=== PATIENT | male | born 1990 | race Caucasian/White ===

== ENCOUNTER 2018-05-11 08:06 | Emergency (ER) | payer BC, MEDICAID ==
[~2018-05-11] VITALS: Ht 180.3 cm; Wt 100.0 kg
[2018-05-11 08:08] VITALS: Ht 180.3 cm; Wt 100.0 kg
[2018-05-11] MEDS ORDERED: ALBUTEROL 0.083% (NEB) 2.5 MG/3 ML AMP NEB STA (09:51)
[2018-05-11] MEDS ORDERED: IPRATROPIUM (NEB) 0.5 MG/2.5 ML AMP NEB STA (09:51)
[2018-05-11] MEDS ORDERED: DEXAMETHASONE 10 MG/ML 1 ML INJ IM STA (09:51)
[2018-05-11] MEDS: ACETAMINOPHEN 500 MG TAB PO STA ×2 (10:00→10:02)
[2018-05-11] MEDS ORDERED: IBUPROFEN 800 MG TAB PO ONE (10:30)
[2018-05-11] MEDS ORDERED: AZIT250T PO (11:09)
--- NOTE | 2018-05-11 11:11 | ERD ---
ER Documentation Chief Complaint Chief Complaint pt is bib self with c/o fever and cough HPI 27-year-old male is here with cough and fever 2 days. Has been taking Tylenol at home. No vomiting. States he feels cold. No hemoptysis or weight loss ROS All systems reviewed and are negative except as per history of present illness. Medications Home Meds Active Scripts Azithromycin* (Zithromax*) 250 Mg Tablet, 250 MG PO .ZPACK DIRECTED, #6 TAB TAKE 500 MG (2 TABS) THE FIRST DAY THEN 250 MG (1 TAB) DAYS 2-5 Prov:LINDSEY DAO PA-C 05/11/18 Allergies Allergies: Coded Allergies: No Known Allergy (Unverified , 05/11/18) PMhx/Soc Medical and Surgical Hx: pt denies Medical Hx, pt denies Surgical Hx Hx Alcohol Use: No Hx Substance Use: Yes (marijuana) Hx Tobacco Use: No Smoking Status: Current every day smoker FmHx Family History: No diabetes Physical Exam Vitals Vital Signs Date Temp Pulse Resp B/P (MAP) Pulse Ox O2 O2 Flow FiO2 Time Delivery Rate 05/11/18 100.8 10:08 05/11/18 77 19 96 21 10:06 05/11/18 101.3 71 18 141/71 99 08:08 (94) Physical Exam INITIAL VITAL SIGNS: Reviewed by me GENERAL: Awake, alert and oriented x 4, well appearing, nontoxic, speaking in full sentences. No acute distress HEAD: Atraumatic NECK: Supple. No masses. Full range of motion. No meningismus. No midline tenderness. THROAT: No tonilar erythema or edema. No exudates. Uvula midline. No kissing tonsils. RESPIRATORY: Clear to auscultation bilaterally. Symmetric chest wall rise. No wheezing or rales. No accessory muscle use. CV: Regular rate and rhythm. No murmurs, rubs, or gallops. Results 24 hrs Current Medications Medications Dose Sig/Alicia Start Time Status Last (Trade) Ordered Route PRN Stop Time Admin Dose Reason Admin Albuterol 5 mg ONCE STAT 05/11/18 DC 05/11/18 (Proventil NEB 09:51 10:05 0.083% (Neb)) 05/11/18 09:52 Ipratropium 0.5 mg ONCE STAT 05/11/18 DC 05/11/18 Hartley NEB 09:51 10:05 (Atrovent 05/11/18 09:52 0.02% (Neb)) 10 mg ONCE STAT 05/11/18 DC 05/11/18 Dexamethasone IM 09:51 10:01 (Decadron) 05/11/18 09:52 1,000 mg ONCE STAT 05/11/18 DC Acetaminophen PO 09:51 (Tylenol 05/11/18 09:52 Tab) Ibuprofen 800 mg ONCE ONCE 05/11/18 DC 05/11/18 (Motrin) PO 10:30 10:08 05/11/18 10:31 Procedures/MDM 27-year-old is here with cough and fever. He was given Motrin for his fever. He was given Decadron and a breathing treatment with improvement. His chest x- ray is negative and his flu test is negative. Likely bronchitis. Z-Marcelo given. Patient counseled regarding my diagnostic impression and care plan. Prior to discharge all questions answered. Pt agrees with treatment plan and understands strict return precautions. Pt is instructed to follow up with primary care provider within 24-48 hours. Precautionary instructions provided including instructions to return to the ER if not improving or for any worsening or changing symptoms or concerns. Departure Diagnosis: Primary Impression: Bronchitis Condition: Stable Patient Instructions: Bronchitis, Antiobiotic Treatment (Adult) Additional Instructions: Call your primary care doctor TOMORROW for an appointment during the next 1-2 days.See the doctor sooner or return here if your condition worsens before your appointment time. LINDSEY DAO PA-C May 11, 2018 11:11
[2018-05-11 11:30] VITALS: BP 118/60; PULSE 90; RESP 18
== END 2018-05-11 11:34 | disposition home or self-care (01) ==
LOC: FTE 08:06
DX: J40 Bronchitis, not specified as acute or chronic (principal); F17.210 Nicotine dependence, cigarettes, uncomplicated
CPT/HCPCS: 71045; 87400; 94664; J1100; Z7610; 96372